=== PATIENT | male | born 1985 | race Caucasian/White ===

== ENCOUNTER 2017-10-11 15:44 | Emergency (ER) | payer SELFPAY ==
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
--- NOTE | 2017-10-12 09:24 | CR ---
EXAM DATE: 10/11/17 PATIENT'S AGE: 32 Patient: ARAM BETANCUR Facility: [place], [place] : 1985 Study: XRay Shoulder Left [id number]/11/2017 4:31:19 PM Ordering Physician: RICHARD Final Report: HISTORY: Pain. FINDINGS: Three views of the left shoulder demonstrates maintenance of the AC joint and glenohumeral joint. No fracture or dislocation seen. IMPRESSION: No acute bony abnormality within the left shoulder. Dictated by Candie Hamlin MD @ 10/11/2017 4:34:22 PM Dictated by: Candie Hamlin MD @ 10/11/2017 16:34:26 (Electronic Signature) Report Signed by Proxy. JOMAR
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
== END 2017-10-11 17:05 | disposition home or self-care (01) ==
LOC: MW.ED 15:44
DX: S09.90XA Unspecified injury of head, initial encounter (principal); S49.92XA Unspecified injury of left shoulder and upper arm, initial encounter; Z79.899 Other long term (current) drug therapy; Y04.0XXA Assault by unarmed brawl or fight, initial encounter
CPT/HCPCS: 70450; 70450-26; 73030-26-LT; 73030-LT; 99284-25